=== PATIENT | female | born 1980 | race Two or more races ===

== ENCOUNTER 2024-11-30 09:38 | Emergency (ER) | payer OTHER ==
[~2024-11-30] VITALS: Ht 165.1 cm; Wt 110.7 kg
[~2024-11-30 09:38] MED LIST: MOTRIN800 MG PO
[2024-11-30 10:25] LABS: BASO % 0.6 % (0.1-1.2); EOS # 0.72 (0.04-0.54); EOS % 8.3 % (0.7-7.0); HEMATOCRIT 39.2 % (34.1-44.9); LYMPH # 2.12 (1.18-3.74); LYMPH % 24.5 % (19.3-53.1); MEAN CORPUSCULAR HEMOGLOBIN 28.1 pg (25.6-32.2); MONO # 0.51 (0.24-0.82); MONO % 5.9 % (4.7-12.5); NEUT # 5.21 (1.56-6.13); NEUT % 60.2 % (34.0-71.1); PLATELET COUNT 340 K/uL (163-369); RED BLOOD COUNT 4.62 M/uL (3.93-5.22); RED CELL DISTRIBUTION WIDTH 13.7 % (11.6-14.4)
[2024-11-30 11:51] LABS: INFLUENZA A AG NEGATIVE (NEGATIVE); INFLUENZA B AG NEGATIVE (NEGATIVE)
[2024-11-30 11:52] LABS: COVID-19 AG NEGATIVE (NEGATIVE)
== END 2024-11-30 12:08 | disposition home or self-care (01) ==
LOC: ER 09:38
PROVIDERS: General Practice
DX: R05.8 Other specified cough (principal); Z20.822 Contact with and (suspected) exposure to COVID-19

== ENCOUNTER 2025-05-10 09:34 | Emergency (ER) | payer OTHER ==
[~2025-05-10] VITALS: Ht 167.6 cm; Wt 110.2 kg
[2025-05-10] MEDS ORDERED: DEXAMETHASONE 4 MG TABLET PO STA (10:45)
[2025-05-10] MEDS ORDERED: ORPHENADRINE CITRATE 100 MG TABLET PO STA (10:45)
[2025-05-10] MEDS ORDERED: ORPHENADRINE CITRATE 30 MG/ML AMPUL ONE (11:39)
[2025-05-10] MEDS ORDERED: DEXAMETHASONE SODIUM PHOSPHATE 4 MG/ML VIAL ONE (11:39)
[2025-05-10] MEDS ORDERED: IBU600 MG PO (12:39)
[2025-05-10] MEDS ORDERED: MEDROLPACK PO (12:39)
[2025-05-10 13:16] VITALS: BP 120/70; O2SAT 100
== END 2025-05-10 13:17 | disposition home or self-care (01) ==
LOC: ER 09:35
DX: M75.51 Bursitis of right shoulder (principal); Z88.6 Allergy status to analgesic agent